=== PATIENT | male | born 1940 | race Caucasian/White ===

== ENCOUNTER 2018-08-24 17:36 | Emergency (ER) | payer OTHER ==
[2018-08-24] MEDS: SOD CHLORIDE 0.9% 500 ML IV (18:17)
[2018-08-24 18:19] LABS: ADD MAN DIFF? NO
[2018-08-24 18:28] LABS: BASOPHILS % 0.7 % (0.0-2.0); EOSINOPHILS # 0.1 10^3/ul (0.0-0.5); EOSINOPHILS % 1.6 % (0.0-7.0); HEMATOCRIT 37.3 % (42.0-52.0); HEMOGLOBIN 12.7 g/dl (14.0-18.0); LYMPHOCYTES # 1.6 10^3/ul (0.8-2.9); MEAN CORPUSCULAR HEMOGLOBIN 32.3 pg (29.0-33.0); MEAN CORPUSCULAR VOLUME 94.9 fl (82.0-101.0); MEAN PLATELET VOLUME 9.4 fl (7.4-10.4); MONOCYTE # 0.6 10^3/ul (0.3-0.9); NEUTROPHIL # 3.2 10^3/ul (1.6-7.5); NEUTROPHILS % 58.2 % (39.0-77.0); PLATELET COUNT 148 10^3/UL (140-415); RED BLOOD COUNT 3.93 10^6/ul (4.70-6.10); RED CELL DISTRIBUTION WIDTH 12.1 % (11.5-14.5)
[2018-08-24 18:28] LABS: WHITE BLOOD COUNT 5.6 10^3/ul (4.8-10.8)
[2018-08-24 18:45] LABS: ANION GAP 5 (5-13); BLOOD UREA NITROGEN 13 mg/dl (7-20); CALCIUM 8.4 mg/dl (8.4-10.2); CARBON DIOXIDE 26 mmol/L (21-31); CHLORIDE 109 mmol/L (97-110); CREATININE 0.92 mg/dl (0.61-1.24); GLUCOSE 93 mg/dl (70-220); POTASSIUM 3.9 mmol/L (3.5-5.1); SODIUM 140 mmol/L (135-144)
[2018-08-24 18:53] LABS: INR 1.03; PROTIME 13.6 Sec (11.9-14.9); PT RATIO 1.1
[2018-08-24 18:54] LABS: PARTIAL THROMBOPLASTIN TIME 30.2 Sec (23.0-35.0)
[2018-08-24 18:57] LABS: TROPONIN-I < 0.012 ng/ml (0.000-0.120)
[2018-08-24] MEDS: ONDANSETRON 4 MG INJ IV (20:12)
[2018-08-24] MEDS: morphine 4 MG/ML VIAL IV (20:12)
== END 2018-08-24 21:30 | disposition short-term general hospital (02) ==
LOC: E/R 21:30
DX: R55 Syncope and collapse (principal)
CPT/HCPCS: 36415; 71045; 80048; 82962; 84484; 85025; 85610; 85730; 93005; 99285-25